=== PATIENT | female | born 1950 | race Caucasian/White ===

== ENCOUNTER → 2019-12-20 15:30 | Outpatient (CLI) | payer MEDICARE, BC ==
[2014-10-10 13:23] VITALS: BMI 30.9
[~2019-12-20 15:30] MED LIST: CALCIUM 600+D T1 TA1 PO; CELEXA20 MG PO; FIORICET/ESGIC1 TAB PO; IMITREX100 MG PO; INDERAL LA120 MG PO; MAXALT MLT10 MG/TAB PO; NORFLEX100 MG PO; PAMELOR 25 MG C25 MG PO; PRAVACHOL40 MG PO; TOPAMAX100 MG PO; ZANAFLEX2 M1 PO
[2019-12-20 15:56] LABS: BASOPHILS 0.7 % (0-2); EOSINOPHILS 9.9 % (0-7); HEMATOCRIT 41.8 % (36.0-48.0); HEMOGLOBIN 13.4 g/dL (12-16); IMMATURE GRANULOCYTES 0.8 % (0-5); LYMPHOCYTES 29.6 % (15-50); MCH 30.6 pg (26.0-34.0); MCHC 32.1 g/dL (31.0-37.0); MCV 95.4 fL (80.0-100.0); MEAN PLATELET VOLUME 10.4 fL (7.4-10.4); MONOCYTES 9.6 % (2-11); NEUTROPHILS 49.4 % (40-80); PLATELET COUNT 224 10x3/uL (130-400); RBC 4.38 10x6/uL (4.00-5.40); RDW 13.4 % (11.5-14.5); WBC 7.1 10x3/uL (4.8-10.8)
[2019-12-20 16:39] LABS: ALBUMIN 3.7 g/dL (3.4-5.0); ANION GAP 10.8 mmol/L (8-16); BILIRUBIN - TOTAL 0.19 mg/dL (0.2-1.3); CALCIUM 9.6 mg/dL (8.5-10.1); CARBON DIOXIDE 27.9 mmol/L (21.0-32.0); CREATININE - SERUM 1.5 mg/dL (0.6-1.3); POTASSIUM - SERUM 4.7 mmol/L (3.5-5.1); PROTEIN - SERUM 7.2 g/dL (6.4-8.2)
== END | disposition home or self-care (01) ==
LOC: D.LAB 15:30
PROVIDERS: ATTEND Psychiatry & Neurology Neurology
DX: G43.909 Migraine, unspecified, not intractable, without status migrainosus (principal)